=== PATIENT | female | born 1945 | race Caucasian/White ===

== ENCOUNTER 2018-05-25 06:09 | Day surgery (SDC) | payer OTHER, MEDICARE ==
[2018-05-15 14:14] VITALS: BMI 27.0
[2018-05-25] MEDS ORDERED: SCOPOLAMINE HYDROBROMIDE 1 PATCH PATCH.TD72 ONE (07:33)
[2018-05-25] MEDS ORDERED: GENTAMICIN SO4 80 MG/2 ML VIAL ONE ×2 (07:36→09:59)
[2018-05-25] MEDS ORDERED: ceFAZolin SODIUM 1 GM VIAL ONE ×3 (07:36→09:58)
[2018-05-25] MEDS ORDERED: fentaNYL CITRATE 250 MCG/5 ML VIAL ONE (07:42)
[2018-05-25] MEDS ORDERED: PROPOFOL 20 ML ONE ×3 (07:43)
[2018-05-25] MEDS ORDERED: SUCCINYLCHOLINE CHLORIDE 200 MG/10 ML VIAL ONE (07:43)
[2018-05-25] MEDS ORDERED: MIDAZOLAM HCL 2 MG/2 ML SINGLE DOSE VIAL ONE (07:43)
[2018-05-25] MEDS ORDERED: ONDANSETRON 4 MG/2 ML VIAL ONE ×2 (07:45→11:56)
[2018-05-25] MEDS ORDERED: DEXAMETHASONE SOD PHOSPHATE 4 MG/1 ML VIAL ONE (07:45)
[2018-05-25] MEDS ORDERED: LIDOCAINE HCL 2% JELLY (5 ML/TUBE) ONE (08:22)
[2018-05-25] MEDS ORDERED: ePHEDrine SULFATE 50 MG/1 ML AMPULE ONE (08:31)
[2018-05-25] MEDS ORDERED: BACITRACIN 15 GM TUBE TOPICAL OINTMENT ONE (08:37)
[2018-05-25] MEDS ORDERED: ONDANSETRON 4 MG/2 ML VIAL IVPB PRN (11:11)
[2018-05-25] MEDS ORDERED: oxyCODONE HCL 5 MG TABLET PO PRN ×4 (11:11→11:12)
[2018-05-25] MEDS ORDERED: ONDANSETRON 4 MG/2 ML VIAL IVPUSH PRN (11:12)
[2018-05-25] MEDS ORDERED: PROMETHAZINE HCL 25 MG/1 ML VIAL IVPUSH PRN (11:12)
--- NOTE | 2018-05-25 11:14 | OP ---
Operative Note - Note: Operative Date: 05/25/18 Pre-Operative Diagnosis: right breast rupture, bilater breast implant capsular contracture Operation: bilateral capsulotomies with implant exchange Findings: right breast implant rupture Implants: bilateral silicone smooth round HP SSF 750cc implants Post-Operative Diagnosis: Same as Pre-op Surgeon: Percy Junior Anesthesia: General Operative Report Dictated: Yes
[2018-05-25] MEDS ORDERED: LACTATED RINGERS SOLUTION 1,000 ML IV SCH (11:15)
[2018-05-25] MEDS ORDERED: ONDANSETRON 4 MG/2 ML VIAL IVPUSH ONE (11:53)
[2018-05-25 12:54] VITALS: TEMP 97.6
[2018-05-25] MEDS ORDERED: oxyCODONE HCL 5 MG TABLET ONE (12:55)
[2018-05-25 14:08] VITALS: BP 118/66; PULSE 62
--- NOTE | 2018-05-25 21:55 | OP ---
DATE OF OPERATION: 05/25/2018 TITLE OF PROCEDURE: 1. Right reconstructed breast removal of ruptured breast prosthesis with periprosthetic capsulotomy, and placement of new silicone gel breast prosthesis. 2. Left reconstructed breast removal of intact mammary prosthesis, capsulotomy, and replacement with silicone gel new breast prosthesis. ATTENDING SURGEON: Chel Bronson MD ASSISTANTS: None. PREOPERATIVE DIAGNOSES: Bilateral reconstructed breast capsular contracture, Stanton grade III; right-sided silicone breast implant rupture by MRI diagnosis; and right-sided breast cancer status post bilateral mastectomy and breast reconstruction. ANESTHESIA: General endotracheal. The patient is marked in the holding area. The plan is for incision along the existing mastectomy scars. She is awake and aware, understands these incisions and resulting scars. Risks, benefits, and alternatives are fully discussed with the patient. She is given 2 g of Ancef preoperatively. She is brought to the operating room, placed in supine position. Position is carefully checked by surgical and anesthesia teams. All pressure points are carefully padded, and patient's arms are secured. The patient is then prepped with each Betadine scrub and ChloraPrep paint. Patient is prepped and draped in standard surgical fashion. A timeout is called. Patient, procedure, sites, and sides are verified. The procedure is as follows: An incision was made along the existing mastectomy scar on the patient's right side. Dissection carried down to the level of the periprosthetic capsule. The dissection is then carried along the capsule to allow for an incision and closure of the capsule that will not be directly under the skin. A capsulotomy is then performed, and the breast implant is identified as clearly ruptured. The contents and material are able to be removed easily. The cavity is pulse lavaged with a liter of normal saline after the gross elements are removed and is then irrigated with standard triple-antibiotic solution. There were no residual silicone elements or elements of the previous breast implant shell within the capsule. The contracted capsule is then treated with scoring along the inferior pole in a checkerboard fashion to allow for better inframammary inferior pole fill. Hemostasis then meticulously achieved and a Natrelle SSF 750-mL sizer is then placed into the cavity and skin is tailor tacked. At this point, attention is then directed to the contralateral left side where an incision is made along the existing mastectomy scar, carried down to the level of the periprosthetic capsule. Stair step is then made prior to capsulotomy. The capsulotomy is then performed, and an intact [place] smooth, round, high-profile, 750-mL silicone gel implant is found and removed. This cavity is also copiously irrigated with triple-antibiotic solution. At this point, another 700-mL sizer is then placed into the capsule. Skin is tailor tacked. The patient is brought to a seated, upright position to determine the appropriate size for the replacement implant. It is determined that a 750-mL implant with the capsulotomies that were performed creates an excellent shape and size with good fill for the cavity. Decision is made to use a 745-mL implant as this is the closest size on consignment. The right side, as the inframammary fold is slightly lowered, the new position is controlled with several 2-0 PDS sutures from the inferior mastectomy skin flap to the chest wall. After this, the wounds are once again copiously irrigated with triple-antibiotic solution. Using the Andrew funnel and a no-touch technique, Allergan style SSF smooth, round, high-profile, silicone gel implant 745-mL are then oriented properly with new gloves, placed into the funnel and then oriented properly and squeezed into the implant cavity. This is done bilaterally. A closure of the capsule is then performed with a running 3-0 PDS suture. The deep mastectomy fat is then closed with a running 3-0 Monocryl suture. The dermis is approximated with a series of interrupted, buried, deep dermal 3-0 Monocryl suture, followed by a running subcuticular 3-0 Monocryl suture. The closure is performed identically bilaterally. With the patient in a seated, upright position, the position, shape, and size of the implants are very symmetric. Dressings are applied with 1/2-inch Steri-Strips, 4 x 4 gauze, ABD, and a breast binder. Patient awakened from anesthesia, having tolerated procedure well, transferred to recovery without complication. CHEL BRONSON M.D. [id number]
--- NOTE | 2018-05-28 15:51 | PATH ---
Surgical Pathology Report Patient Name: MATEO GILL Med. Rec. #: [id number] /Age/Gender: 1945 (Age: 72) / F Account: [id number] Location: [facility] Taken: 05/25/2018 Received: 05/25/2018 Reported: 05/28/2018 Physicians: Percy Junior Specimen(s) Received A: RIGHT BREAST IMPLANT B: LEFT BREAST IMPLANT Clinical History Implant rupture Final Diagnosis A. IMPLANT, RIGHT BREAST, REMOVAL: IMPLANT WITH RUPTURE, DESCRIBED (GROSS EXAMINATION ONLY). B. IMPLANT, LEFT BREAST, REMOVAL: IMPLANT, DESCRIBED (GROSS EXAMINATION ONLY). Electronically Signed Candy Acosta M.D. Gross Description A. Received fresh labeled "right breast implant," is a 15 cm in diameter x 5 cm in depth breast implant. There is a focal defect in the implant and silicon material leaking from the defect, into the container. No soft tissue is present. No sections are submitted, gross only. B. Received fresh labeled "left breast implant," is a 15 cm in diameter x 5 cm in depth clear, rubbery, intact breast implant. No soft tissue is present. No sections are submitted, gross only. 05/26/2018 saudi05/26/2018
== END 2018-05-25 14:00 | disposition home or self-care (01) ==
LOC: FASU 06:09
PROVIDERS: ATTEND Plastic Surgery
PROC: 0HPU0JZ Removal of Synthetic Substitute from Left Breast, Open Approach (ICD-10-PCS; 2018-05-25)
PROC: 0HPT0JZ Removal of Synthetic Substitute from Right Breast, Open Approach (ICD-10-PCS; 2018-05-25)
PROC: 0HRV0JZ Replacement of Bilateral Breast with Synthetic Substitute, Open Approach (ICD-10-PCS; 2018-05-25)
PROC: 0HNV0ZZ Release Bilateral Breast, Open Approach (ICD-10-PCS; 2018-05-25)
PROC: 0HRV0JZ Replacement of Bilateral Breast with Synthetic Substitute, Open Approach (ICD-10-PCS; principal; 2018-05-25 09:01)
DX: T85.44XA Capsular contracture of breast implant, initial encounter (principal); T85.43XA Leakage of breast prosthesis and implant, initial encounter; Y82.8 Other medical devices associated with adverse incidents; Y92.9 Unspecified place or not applicable; Z85.3 Personal history of malignant neoplasm of breast; Z90.13 Acquired absence of bilateral breasts and nipples
CPT/HCPCS: 88300-TC; 94760